=== PATIENT | female | born 1975 | race Caucasian/White ===

== ENCOUNTER 2017-02-08 15:58 | Emergency (ER) | payer OTHER ==
[2017-02-08] MEDS ORDERED: TORADOL IM ONE (19:28)
[2017-02-08] MEDS ORDERED: VALIUM PO ONE (19:28)
--- NOTE | 2017-02-08 20:24 | Emergency Department Report ---
Entered by STACEY LOPES, acting as scribe for NESSA SALCEDO PA. ED Back Pain/Injury HPI - General Chief Complaint: Back Pain/Injury Stated Complaint: LOWER BACK PAIN Time Seen by Provider: 02/08/17 19:21 Source: patient, family Limitations: No Limitations - History of Present Illness Initial Comments: 41 year old female with no significant PMHx presents to the ED c/o lower mid back pain that began this afternoon at 13:00. Patient's daughter states that she felt a sharp pain while bending down in the shower. Rates pain a 10/10 in severity, which radiates to bilateral legs. Pain worsens with movement. She states that she had similar symptoms 4 years ago and was diagnosed with a pulled muscle in back. Denies bowel/urinary incontinence, numbness, tingling, generalized weakness, paresthesias, fever, and SOB. NKDA. REARDON Complaint: back pain (lower mid back) -: This afternoon Time: 13:00 Similar Symptoms Previously: Yes (4 years ago) Place: home (while taking a shower) Radiation: left leg, right leg Severity: moderate Severity scale (0 -10): 10 Quality: sharp Consistency: constant, intermittent Improves With: immobilization Worsens With: movement Context: bending (while in the shower) Associated Symptoms: denies: weakness (generalized), numbness, incontinence ( bowel and urinary), fever/chills, nausea/vomiting, shortness of breath, other ( paresthesias) - Related Data Previous Rx's Medication Instructions Recorded Last Taken Type Cyclobenzaprine [Flexeril] 10 mg PO TID PRN #20 tablet 02/08/17 Unknown Rx Naproxen [Naprosyn] 500 mg PO BID #30 tablet 02/08/17 Unknown Rx Allergies Allergy/AdvReac Type Severity Reaction Status Date / Time No Known Allergies Allergy Unverified 02/08/17 16:23 ED Review of Systems Comment: All other systems reviewed and negative Constitutional: denies: chills, fever, weakness (generalized), other (tingling) Respiratory: denies: orthopnea, shortness of breath, SOB with exertion, SOB at rest Cardiovascular: denies: chest pain, dyspnea on exertion, orthopnea Gastrointestinal: denies: nausea, vomiting Genitourinary: denies: other (bowel and urinary incontinence) Musculoskeletal: back pain (lower mid back), other (bilateral leg pain from radiation of lower mid back pain) Neurological: denies: numbness, paresthesias ED Past Medical Hx - Past Medical History Previous Medical History?: No - Surgical History Additional Surgical History: Tubal Ligation - Social History Smoking Status: Never Smoker Substance Use Type: None - Medications Home Medications: Home Medications Medication Instructions Recorded Confirmed Last Taken Type Cyclobenzaprine [Flexeril] 10 mg PO TID PRN #20 tablet 02/08/17 Unknown Rx Naproxen [Naprosyn] 500 mg PO BID #30 tablet 02/08/17 Unknown Rx ED Physical Exam - General Limitations: No Limitations General appearance: alert, in no apparent distress - Head Head exam: Present: atraumatic, normocephalic - Eye Eye exam: Present: normal appearance, EOMI Pupils: Present: normal accommodation - ENT ENT exam: Present: normal exam, mucous membranes moist - Neck Neck exam: Present: normal inspection, full ROM. Absent: tenderness, lymphadenopathy - Respiratory Respiratory exam: Present: normal lung sounds bilaterally. Absent: respiratory distress, wheezes, rales, rhonchi, stridor - Cardiovascular Cardiovascular Exam: Present: regular rate, normal rhythm. Absent: systolic murmur, diastolic murmur, rubs, gallop - GI/Abdominal GI/Abdominal exam: Present: soft. Absent: distended, tenderness, guarding, rebound, rigid - Extremities Exam Extremities exam: Present: normal inspection, full ROM. Absent: tenderness, pedal edema, joint swelling - Back Exam Back exam: Present: normal inspection, full ROM. Absent: tenderness, muscle spasm, paraspinal tenderness, vertebral tenderness - Expanded Back Exam Expanded Back exam: Sciatic Notch Tenderness: Left, Right, Negative Straight Leg Raising : Left, Right - Neurological Exam Neurological exam: Present: alert, oriented X3, CN II-XII intact, normal gait - Psychiatric Psychiatric exam: Present: normal affect, normal mood - Skin Skin exam: Present: warm, dry, intact. Absent: rash ED Course Vital Signs 02/08/17 16:23 Temperature 98.6 F Pulse Rate 65 Respiratory 18 Rate Blood Pressure 124/71 O2 Sat by Pulse 100 Oximetry ED Medical Decision Making - Lab Data Vital Signs 02/08/17 16:23 Temperature 98.6 F Pulse Rate 65 Respiratory 18 Rate Blood Pressure 124/71 O2 Sat by Pulse 100 Oximetry - Medical Decision Making 41-year-old female presents today with lower back pain radiating down bilateral lower extremities. Patient reports pain control post medication. Patient is in no acute distress at this time. She will be discharged home and is encouraged to follow up with a primary care provider. She will be sent home on Flexeril and naproxen and is encouraged to return to the emergency room for any worsening symptoms. ED Disposition Clinical Impression: Low back pain Qualifiers: Chronicity: acute Back pain laterality: bilateral Sciatica presence: with sciatica Sciatica laterality: bilateral sciatica Qualified Code(s): M54.42 - Lumbago with sciatica, left side; M54.41 - Lumbago with sciatica, right side Disposition: DISCHARGED TO HOME OR SELFCARE Is pt being admited?: No Does the pt Need Aspirin: No Condition: Stable Instructions: Sciatica (ED), Muscle Strain (ED) Additional Instructions: Follow-up with primary care provider. Return to the emergency department if symptoms worsen. Prescriptions: Cyclobenzaprine [Flexeril] 10 mg PO TID PRN #20 tablet PRN Reason: Muscle Spasm Naproxen [Naprosyn] 500 mg PO BID #30 tablet Referrals: PRIMARY CARE,MD [Primary Care Provider] - 3-5 Days CHARLIE JAY MD [Staff Physician] - 3-5 Days [facility] [Outside] - 3-5 Days Forms: Work/School Release Form(ED), Accompanied Note Time of Disposition: 20:22 This documentation as recorded by the MARIANNE alafro JASMINE,accurately reflects the service I personally performed and the decisions made by ,NESSA SALCEDO PA.
[2017-02-08 21:01] VITALS: BP 124/78
== END 2017-02-08 20:58 | disposition home or self-care (01) ==
LOC: ED 15:58
DX: M54.42 Lumbago with sciatica, left side (principal); M54.41 Lumbago with sciatica, right side; Z98.51 Tubal ligation status
CPT/HCPCS: 96372; 99282; J1885